=== PATIENT | female | born 1970 | race Caucasian/White ===

== ENCOUNTER 2017-12-31 08:40 | Day surgery (SDC) | payer OTHER ==
[~2017-12-31] VITALS: Ht 160 cm; Wt 108.9 kg
[~2017-12-31 08:40] MED LIST: CARTIA XT120 MG PO; MOBIC7.5 MG PO; OMEPRAZOLE20 MG PO; SPIRONOLACTONE50 MG PO; SUMATRIPTAN SUC50 MG PO; VITAMIN D2000 UNIT PO; WELLBUTRIN XL300 MG PO
--- NOTE | 2017-12-31 11:25 | NUR ---
12/31/17 1125 Tish Nuñez 1118-PATIENT ARRIVED TO PACU ON 8L MASK O2 SAT 100% WEANED TO 6L. PATIENT REACTIVE TO VOICE EYES CLOSED NODDING HEAD NO TO PAIN. RIGHT LEG ELEVATED ON PILLOW DRESSING CDI ICE APPLIED. GOOD CAP REFILL, WARMTH AND PEDAL PULSE. 1125-DENIES PAIN OR NAUSEA SR. RR EVEN.
--- NOTE | 2017-12-31 12:13 | NUR ---
1200: PATIENT BACK IN DAY SURGERY ROOM FROM PACU. DENIES PAIN. ALERT AND ORIENTED. IV SITE WNL. VS CHECKED. RIGHT KNEE DRESSING CDI. ICE PACK TO RIGHT KNEE. RIGHT LEG ELEVATED ON PILLOW. SCDs ON. AT BEDSIDE. CALL LIGHT WITHIN REACH.
--- NOTE | 2017-12-31 12:40 | NUR ---
LE 1220: PT IS ASSISTED UP OOB TO THE RESTROOM. SHE DENIES ANY PAIN WITH PUTTING PRESSURE ON HER RIGHT KNEE. PT IS ASSISTED BACK INTO BED, SHE REPORTS FEELING LIKE SHE EMPTIED HER BLADDER. SHE WOULD LIKE TO TRY SOME TOMATO SOUP. IS STILL AT THE BEDSIDE. NO OTHER C/O'S OR NEEDS AT THIS TIME. WILL REASSESS WITHIN THE HOUR.
[2017-12-31] MEDS ORDERED: ULTRAM50 MG PO (13:15)
--- NOTE | 2018-01-02 08:48 | OR ---
[facility] [address], [place] [address] Signed DATE OF OPERATION: 12/31/2017 SURGEON: Lizbeth Jessica MD PREOPERATIVE DIAGNOSIS: Medial meniscal tear, right knee. POSTOPERATIVE DIAGNOSIS: Medial meniscal tear, right knee with some grade 1 to grade 2 chondral changes over the weightbearing portion of the medial femoral condyle. PROCEDURE: Knee arthroscopy with partial medial meniscectomy. ANESTHESIA: General. SPECIMENS AND COMPLICATIONS: There were no specimens or complications. TOURNIQUET TIME: About 20 minutes. WHAT WAS DONE: The patient was taken to the operating room. After anesthesia was induced and airway secured, the right lower extremity was positioned, prepped and draped in a routine sterile fashion. The leg was exsanguinated with an Esmarch bandage. Pneumatic tourniquet was inflated to 300 mmHg pressure. The arthroscope inserted through the standard anterolateral portal and an outflow portal was made superomedially. An anteromedial portal was then created using transillumination and localization with a spinal needle. Diagnostic arthroscopy of the knee revealed a mildly injected synovitis in the suprapatellar pouch. Patellofemoral joint was unremarkable. The medial recess was unremarkable. The medial compartment revealed a vertical tear through the medial meniscus with a small anterior and posterior flap. There were also some areas of grade 1 to grade 2 chondral belt changer the medial femoral condyle in the area of the tear. Intercondylar notch was unremarkable as was the lateral compartment and the lateral recess. The scope was then returned to the medial compartment. Basket forceps was introduced, the tear was completed, and the motorized shaver was introduced and all meniscal shards were removed from the knee and the edges of the meniscectomy were debrided and trimmed back to a smooth edge. The knee was copiously irrigated and Electronically Signed By: LIZBETH JESSICA MD 01/02/18 0848 PATIENT NAME: LISSETTE LEIGH OPERATIVE REPORT DATE OF : 68 REPORT #: [id number] PHYSICIAN: LIZBETH JESSICA MD PCP: GLORIA VALADEZ DO REPORT IS CONFIDENTIAL AND NOT TO BE RELEASED WITHOUT AUTHORIZATION [facility] [address], [place] [address] Signed drained. The portals were closed and a sterile dressing applied. The patient was awakened and taken to the recovery room where she arrived in stable condition. Counts were correct and antibiotic protocols were followed. Lizbeth Jessica MD WFB/MODL /[id number] Copies: ~ Electronically Signed By: LIZBETH JESSICA MD 01/02/18 0848 PATIENT NAME: LISSETTE LEIGH OPERATIVE REPORT DATE OF : 68 REPORT #: [id number] PHYSICIAN: LIZBETH JESSICA MD PCP: GLORIA VALADEZ DO REPORT IS CONFIDENTIAL AND NOT TO BE RELEASED WITHOUT AUTHORIZATION
== END 2017-12-31 13:35 | disposition home or self-care (01) ==
LOC: DS 08:40
PROVIDERS: Orthopaedic Surgery
PROC: 0SBC4ZZ Excision of Right Knee Joint, Percutaneous Endoscopic Approach (ICD-10-PCS; principal; 2017-12-31 09:45)
DX: S83.241A Other tear of medial meniscus, current injury, right knee, initial encounter (principal); M65.861 Other synovitis and tenosynovitis, right lower leg; F32.9 Major depressive disorder, single episode, unspecified; E66.9 Obesity, unspecified; Z88.0 Allergy status to penicillin; Z79.1 Long term (current) use of non-steroidal anti-inflammatories (NSAID); Z79.899 Other long term (current) drug therapy; Z68.41 Body mass index [BMI] 40.0-44.9, adult
CPT/HCPCS: 01400; J0690; J0735; J1100; J1885; J2250; J2704; J3010; J3475; J7120

== ENCOUNTER 2018-11-24 22:00 | Observation (INO) | payer OTHER ==
[~2018-11-24] VITALS: Ht 160 cm; Wt 93.0 kg
[~2018-11-24 22:00] MED LIST changes: +ULTRAM50 MG PO
--- NOTE | 2018-11-25 02:06 | NUR ---
SALINE LOCKED ptChai SANDOVAL FROM IMAGING IN ROOM TO TAKE pt TO CT. UPDATED ON PLAN OF CARE.
--- NOTE | 2018-11-25 02:23 | NUR ---
pt RETURNED TO FLOOR.
--- NOTE | 2018-11-25 02:42 | NUR ---
ASSESSMENT DONE. pt RESTING WITH EYES CLOSED, COOPERATIVE. RATED PAIN /10. WILL CALL IF NEEDS ANYTHING. IVF INFUSING. NO REQUESTS AT THIS TIME. CALL LIGHT WITHIN REACH. NPO SIGN ON DOOR.
--- NOTE | 2018-11-25 04:18 | NUR ---
PT CALLED TO USE THE BATHROOM, SHE SAT UP, SHE SUDDENLY NEEDED TO VOMIT, WITH NOT MUCH WARNING, DENIES NAUSEA. VOMITED APPROX 325 PALE YELLOW LIQUID, STATED IT TASTED LIKE THE STUFF "SHE DRANK FOR THE SCAN" (GASTROGRAFIN). MED Cole HO, ONCE SHE STATED RELIEF, SHE AMBULATED TO BATHROOM INDEPENDENTLY, STEADY ON FEET, ONCE BACK IN BED, SHE STATED SHE FELT MUCH BETTER, DENIED NEED FOR PAIN MED, WELL STOMACH FELT BETTER.
--- NOTE | 2018-11-25 04:59 | NUR ---
ROUNDED ON pt. RESTING WITH EYES CLOSED, RESPIRATIONS REGULAR IN RATE AND RHYTHM. CALL LIGHT WITHIN REACH.
--- NOTE | 2018-11-25 05:00 | NUR ---
pt RESTED MOST OF SHIFT. CT WITH CONTRAST COMPLETE. NPO AT THIS TIME. IVF INFUSING. PAIN MEDS X1. NAUSEA MEDS X1. USES CALL LIGHT APPROPRIATELY.
--- NOTE | 2018-11-25 07:20 | NUR ---
Pt awake, alert and oriented x3. Pt denies nausea and pain at this time. Respirations are even and non labored. Pt denies need to void. Personal supplies and call light within reach. No needs at this time.
--- NOTE | 2018-11-25 07:31 | NUR ---
PATIENT UP TO BATHROOM AND BACK TO BED, SBA. CALL LIGHT IN REACH. NO FURTHER NEEDS AT THIS TIME.
--- NOTE | 2018-11-25 09:18 | NUR ---
Dr. Lind in to see pt this am. New order placed by provider to advance diet to low fat diet. Provided pt with menu. Pt reporting she is not yet hungry. Pt reports feeling much better this am. Pt denies nausea and reports tolerable pain in abdomen, 3/10. Personal supplies and call light within reach. No needs at this time.
[2018-11-25] MEDS ORDERED: BUPROPION XL300 MG PO (10:19)
[2018-11-25] MEDS ORDERED: FAMOTIDINE40 MG PO (10:21)
[2018-11-25] MEDS ORDERED: VENTOLIN HFA18 GM INH (10:21)
--- NOTE | 2018-11-25 11:09 | NUR ---
PT CALL LIGHT ON. PT REQUESTS ASSISTANCE UP TO RESTROOM. SBA UP TO RESTROOM AND BACK TO BED. PT VOIDS WITHOUT ISSUE. NO ADDITIONAL REQUESTS OR COMPLAINTS. CALL LIGHT WITHIN REACH. BED RAILS UP.
--- NOTE | 2018-11-25 11:36 | NUR ---
Pt awake, sitting up visiting with family. Pt denies pain and sob. Personal supplies and call light within reach. No needs.
[2018-11-25] MEDS ORDERED: PRILOSEC OTC20 MG PO (11:50)
--- NOTE | 2018-11-25 11:51 | NUR ---
MED REC COMPLETE
--- NOTE | 2018-11-25 13:44 | NUR ---
PATIENT SITTING UP IN BED. CALL LIGHT IN REACH. NO FURTHER NEEDS AT THIS TIME.
--- NOTE | 2018-11-25 14:25 | NUR ---
STOPPED IN PATIENT'S ROOM TO SEE HOW SHE IS DOING. SHE IS DOING WELL. STATES SHE HAD COTTAGE CHEESE AND CREAM OF MUSHROOM SOUP FOR LUNCH. I BRIEFLY EXPLAINED THE LOW FAT DIET WHILE HERE. EXPLAINED THAT SALMON IS A HEALTHY FOOD BUT IT IS HIGHER IN FAT SO THAT SHOULDN'T BE ORDERED. 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 SHE SHOULD DO WELL. NO FURTHER QUESTIONS AT THIS TIME. I WILL BE AVAILABLE IF NEEDED.
--- NOTE | 2018-11-25 15:25 | NUR ---
PT HAS A GOOD SUPPORT SYSTEM AT HOME AND IS PLANNING ON RETURNING THERE UPON DISCHARGE.
--- NOTE | 2018-11-25 16:00 | NUR ---
Provided pt with low fat snack. Pt remains free of pain and denies nausea. Personal supplies and call light within reach. Pt voiding q/s urine. No needs at this time. Call light within reach.
== END 2018-11-25 17:49 | disposition home or self-care (01) ==
LOC: ED 22:00 → MS 22:01
PROVIDERS: ADMIT Internal Medicine
DX: K85.90 Acute pancreatitis without necrosis or infection, unspecified (principal); K20.0 Eosinophilic esophagitis; Z79.899 Other long term (current) drug therapy; Z88.0 Allergy status to penicillin; Z90.49 Acquired absence of other specified parts of digestive tract
CPT/HCPCS: 36415; 74177; 80053; 80061; 83690; 85025; 96361; 96375; 99285-25; C9113; G0378; J1170; J2270; J2405; J7030; Q9967

== ENCOUNTER 2025-06-24 18:20 | Emergency (ER) | payer OTHER ==
[~2025-06-24] VITALS: Ht 160 cm; Wt 122.4 kg
[~2025-06-24 18:20] MED LIST changes: +BUPROPION XL300 MG PO; +FAMOTIDINE40 MG PO; +PRILOSEC OTC20 MG PO; +VENTOLIN HFA18 GM INH
[2025-06-24 18:50] LABS: BASOPHILS 0.3 % (0.1-1.2); EOSINOPHILS 8.5 % (0.7-5.8); LYMPHOCYTES 35.0 % (19.3-51.7); MCH 29.9 PG (25.6-32.2); MCHC 34.2 g/dL (32.2-35.5); MCV 87.4 fL (79.4-94.8); MONOCYTES 7.1 % (4.7-12.5); NEUTROPHILS 49.0 % (34.0-71.1); RBC 4.78 M/uL (3.93-5.22)
[2025-06-24] MEDS ORDERED: PEG-3350 AND4000 ML PO (19:01)
[2025-06-24 19:06] LABS: ALT (SGPT) 30.0 U/L (14-59); AST (SGOT) 21.0 U/L (15-37); GLOMERULAR FILTRATION RATE,EST 68.0 mL/min (>60); PROTEIN, TOTAL 7.3 g/dL (6.4-8.2); UREA NITROGEN 17.0 mg/dL (7-18)
[2025-06-24] MEDS ORDERED: PREDNISONE20 MG PO (19:27)
[2025-06-24] MEDS ORDERED: FAMCICLOVIR500 MG PO (19:27)
[2025-06-24] MEDS ORDERED: predniSONE 20 MG TAB PO ONE (19:30)
[2025-06-24] MEDS ORDERED: ACYCLOVIR 400 MG TAB PO ONE (19:30)
[2025-06-24 19:49] VITALS: BP 158/96
== END 2025-06-24 19:51 | disposition home or self-care (01) ==
LOC: ED 18:20
PROVIDERS: Emergency Medicine
DX: G51.0 Bell's palsy (principal); Z91.018 Allergy to other foods; Z88.0 Allergy status to penicillin; Z88.1 Allergy status to other antibiotic agents; Z79.899 Other long term (current) drug therapy
CPT/HCPCS: 36415; 70450; 70496; 70498; 80053; 85025; 99284-25; A9270; J7512; Q3014; Q9967